=== PATIENT | male | born 1975 | race Hispanic/Latino ===

== ENCOUNTER 2016-03-21 20:07 | Emergency (ER) | payer BC ==
[2016-03-21] MEDS ORDERED: LIDOCAINE VIS-MYLANTA 30 ML UD PO ONE ×2 (20:15→20:16)
[2016-03-21] MEDS ORDERED: ONDANSETRON INJ 4 MG/2 ML VIAL ONE (20:21)
[2016-03-21] MEDS ORDERED: ONDANSETRON ODT 8 MG TAB SL SCH (20:30)
[2016-03-21 20:35] VITALS: TEMP 96.9
--- NOTE | 2016-03-21 21:01 | RAD ---
EXAM DESCRIPTION: XR ABDOMEN 2 VIEWS SUPINE ERECT CLINICAL HISTORY: 40-year-old male with epigastric pain. COMPARISON: No prior imaging is available for comparison. TECHNIQUE: 1. Single PA view of the chest was obtained. 2. Three views of the abdomen were obtained in upright and supine positioning. FINDINGS: Chest: The cardiac mediastinal silhouette is within normal limits. Heart size is normal. Low lung volumes grossly clear without discrete focal opacity, pleural effusion or pneumothorax. The osseous structures are within normal limits. Abdomen: Gas is seen within normal caliber large bowel. Diffuse paucity of small bowel air. No free air is identified. Pelvic phleboliths. The osseous structures are within normal limits. IMPRESSION: 1. No acute cardiopulmonary abnormalities. 2. Nonspecific abdominal bowel gas pattern as detailed above. Electronically signed by: Estrellita Patel MD 03/21/2016 20:59
[2016-03-21] MEDS ORDERED: SUCRALFATE 1 GM/10 ML 1 GM UD PO ONE (22:09)
[2016-03-21] MEDS ORDERED: FAMOTIDINE 20 MG TAB ONE (22:18)
[2016-03-21] MEDS ORDERED: ONDANSETRON INJ 4 MG/2 ML VIAL IV ONE (22:20)
--- NOTE | 2016-03-21 23:00 | ED.PDOC ---
History of Present Illness - General Chief Complaint: Cardiovascular Problem Stated Complaint: cant breath and having cp Time Seen by Provider: 03/21/16 20:14 Source: patient Exam Limitations: no limitations - History of Present Illness Initial Comments: the patient is a 40-year-old male presenting to the emergency room secondary to epigastric pain.it started after he had drank 3 beers tonight. He does have a history of significant gastritis and esophageal reflux. He does take Nexium on a regular basis. He does eat spicy foods. He is mildly overweight. No palpitations. It did not occur with exertion. Pain is squeezing and burning. No radiation to the arm or jaw. No shortness of breath. Timing/Duration: 1/2 hour Severity: severe Improving Factors: medication Worsening Factors: eating Associated Symptoms: chest pain, loss of appetite, malaise, nausea/vomiting Allergies/Adverse Reactions: Allergies NO KNOWN ALLERGY Allergy (Verified 03/21/16 20:13) Home Medications: Ambulatory Orders Esomeprazole Magnesium [Nexium] 20 mg PO DAILY 09/11/13 Sucralfate Tab [Carafate Tab] 1 gm PO QID #120 tab 03/21/16 Review of Systems - Review of Systems Constitutional: States: no symptoms reported EENTM: States: no symptoms reported Respiratory: States: no symptoms reported Cardiology: States: no symptoms reported Gastrointestinal/Abdominal: States: abdominal pain, nausea Genitourinary: States: no symptoms reported Musculoskeletal: States: no symptoms reported Skin: States: no symptoms reported Neurological: States: no symptoms reported All other Systems: No Change from Baseline Past Medical History (General) - Patient Medical History Hx Asthma: No Hx Congestive Heart Failure: No Hx Hypertension: No Hx Diabetes: No Hx MRSA: Yes - Knee, Thigh 2010 MRSA Source:: Wound Family Medical History - Family History Mother Family History: Unknown Physical Exam - Physical Exam General Appearance: Alert, Anxious, Obvious distress Eye Exam: bilateral normal Ears, Nose, Throat: normal ENT inspection, normal pharynx Neck: full range of motion, supple Respiratory: chest non-tender, lungs clear, normal breath sounds, no respiratory distress, no accessory muscle use Cardiovascular/Chest: normal peripheral pulses, regular rate, rhythm, no edema Peripheral Pulses: radial,right: 2+, radial,left: 2+ Gastrointestinal/Abdominal: soft, other - mild epigastric discomfort palpation Rectal Exam: deferred Back Exam: normal inspection Extremity: normal range of motion, non-tender, normal inspection, no pedal edema , normal capillary refill Neurologic: alert, normal mood/affect, oriented x 3 Skin Exam: normal color Comments: Vital Signs - 24 hr 03/21/16 20:18 Temperature 96.9 F L Pulse Rate [LA] 69 Respiratory 20 Rate Blood Pressure 127/79 [RA] O2 Sat by Pulse 99 Oximetry Progress - Progress Progress: 03/21/16 23:02 the patient is a 40-year-old male presenting with acute epigastric pain. This does appear to be related to gastritis and esophagitis. He does have long-standing issues with these. He needs to continue his Nexium. He will be written for Carafate for use for the next 2 months. He can additionally use Maalox as needed for symptom control. he needs to return to the ER for any acute worsening. He needs to get set up with a special projects manager for an upper gastrointestinal endoscopy. He needs to avoid alcohol and tobacco. He needs to avoid spicy foods and large meals. Recommend 10-15 pounds weight loss. - Results/Orders Results/Orders: Laboratory Tests 03/21/16 03/21/16 20:15 22:00 WBC 7.3 RBC 5.16 Hgb 15.7 Hct 47.1 MCV 91.2 MCH 30.4 MCHC 33.4 RDW 13.7 Plt Count 189 MPV 11.4 H Absolute Neuts (auto) 3.70 Absolute Lymphs (auto) 2.50 Absolute Monos (auto) 0.70 Absolute Eos (auto) 0.30 Absolute Basos (auto) 0.10 Neutrophils % 50.5 Lymphocytes % 34.8 Monocytes % 10.2 H Eosinophils % 3.7 Basophils % 0.8 PT 11.1 INR 0.980 PTT (SP) 29.7 Sodium 139 Potassium 3.3 L Chloride 101 Carbon Dioxide 28 Anion Gap 13.3 BUN 10 Creatinine 0.73 BUN/Creatinine Ratio 13.7 Random Glucose 80 Serum Osmolality 275.6 Calcium 9.4 Total Bilirubin 0.5 AST 39 ALT 41 Alkaline Phosphatase 68 Creatine Kinase 226 H* 214 H* CK-MB (CK-2) 2.4 2.2 CK-MB (CK-2) % Not Reportable Not Reportable Troponin I < 0.02 < 0.02 Serum Total Protein 7.8 Albumin 4.5 Globulin 3.3 Albumin/Globulin Ratio 1.4 Amylase 57 Lipase 27 abdominal series appears benign. EKG shows normal sinus rhythm with mild right axis deviation. Incomplete right bundle branch block. No acute ST segment changes concerning for ischemia. Departure - Departure Clinical Impression: Esophagitis, Gastritis Disposition: Discharge to Home or Self Care Condition: Fair Departure Forms: ED Discharge - Pt. Copy, Patient Portal Self Enrollment Instructions: DI for Esophagitis, DI for Gastritis Diet: bland diet Activity: increase activity as tolerated Referrals: Tan Lazaro MD [Primary Care Provider] - 1-2 Weeks Prescriptions: Sucralfate Tab [Carafate Tab] 1 gm PO QID #120 tab Home Medications: Ambulatory Orders Esomeprazole Magnesium [Nexium] 20 mg PO DAILY 09/11/13 Sucralfate Tab [Carafate Tab] 1 gm PO QID #120 tab 03/21/16 Additional Instructions: the patient is a 40-year-old male presenting with acute epigastric pain. This does appear to be related to gastritis and esophagitis. He does have long-standing issues with these. He needs to continue his Nexium. He will be written for Carafate for use for the next 2 months. He can additionally use Maalox as needed for symptom control. he needs to return to the ER for any acute worsening. He needs to get set up with a special projects manager for an upper gastrointestinal endoscopy. He needs to avoid alcohol and tobacco. He needs to avoid spicy foods and large meals. Recommend 10-15 pounds weight loss.
[2016-03-21 23:24] VITALS: BP 114/76; O2SAT 95
[2016-03-22] MEDS ORDERED: FAMOTIDINE 20 MG TAB PO ONE (22:09)
== END 2016-03-21 23:27 | disposition home or self-care (01) ==
LOC: ER 20:07
DX: K29.70 Gastritis, unspecified, without bleeding (principal); K20.9 Esophagitis, unspecified; I45.19 Other right bundle-branch block; Z79.899 Other long term (current) drug therapy; Z86.14 Personal history of Methicillin resistant Staphylococcus aureus infection
CPT/HCPCS: 74020; 80053; 82150; 82550; 82553; 83690; 84484; 85025; 85610; 85730; 93005; J2405

== ENCOUNTER → 2018-01-25 | Outpatient (CLI) | payer BC | LOC: GMAE 11:04 | PROVIDERS: ATTEND Family Medicine | DX: R53.82 Chronic fatigue, unspecified (principal) ==

== ENCOUNTER → 2020-03-12 | Outpatient (CLI) | payer BC | LOC: YCFC.O 08:26 | PROVIDERS: ATTEND Nurse Practitioner Family | DX: R39.12 Poor urinary stream (principal); Z13.1 Encounter for screening for diabetes mellitus; Z13.220 Encounter for screening for lipoid disorders; Z11.3 Encounter for screening for infections with a predominantly sexual mode of transmission ==

== ENCOUNTER → 2020-04-17 | Outpatient (CLI) | payer BC | LOC: YCFC.O 13:38 | PROVIDERS: ATTEND Nurse Practitioner Family | DX: E78.2 Mixed hyperlipidemia (principal); R31.9 Hematuria, unspecified ==